=== PATIENT | female | born 1990 | race American Indian/Alaskan Native ===

== ENCOUNTER 2019-05-22 15:15 | Emergency (ER) | payer SELFPAY ==
--- NOTE | 2019-05-22 15:47 | Emergency Department Report ---
Blank Doc - Documentation Documentation: 29-year-old female that presents with pelvic pain and vaginal discharge. This initial assessment/diagnostic orders/clinical plan/treatment(s) is/are subject to change based on patient's health status, clinical progression and re- assessment by fellow clinical providers in the ED. Further treatment and workup at subsequent clinical providers discretion. Patient/guardians urged not to elope from the ED as their condition may be serious if not clinically assessed and managed. Initial orders include: 1- Patient sent to [facility] for further evaluation and treatment 2- UA 3- pelvic exam
[2019-05-22 16:53] LABS: HCG Qualitative,Urine Negative (Negative)
[2019-05-22 17:13] LABS: Bacteria,Urine 4+ /HPF (Negative)
[2019-05-22 17:14] LABS: Bilirubin,Urine NEG (Negative); Blood,Urine SM (Negative); Color,Urine Amber (Yellow); Mucus,Urine 3+ /HPF
--- NOTE | 2019-05-22 20:26 | Emergency Department Report ---
ED Female HPI - General Chief complaint: Urogenital-Female Stated complaint: VAGINAL DISCOMFORT Time Seen by Provider: 05/22/19 15:47 Source: patient Mode of arrival: Ambulatory Limitations: No Limitations - History of Present Illness Initial comments: 29 y/o female presents to the ED c/o of a 1 day history of a pain full vaginal mass without associated vaginal bleeding or abdominal pain. NO flank pain. Pain is dull and throbbing. No fever, chills or sweats. no nasuea or vomiting. -: Sudden Radiation: non-radiating Severity: mild Consistency: constant Improves with: none Worsens with: none Are you Now?: No Associated Symptoms: denies: vaginal discharge, vaginal bleeding, nausea/vomiting, loss of appetite, dysuria, shortness of breath, syncope, weakness - Related Data Previous Rx's Medication Instructions Recorded Last Taken Type Acetaminophen/Codeine [Tylenol #3] 1 tab PO Q6H PRN #15 tab 15 Unknown Rx Cyclobenzaprine [Flexeril 10 MG 10 mg PO TID PRN #12 tablet 15 Unknown Rx TAB] Ibuprofen [Motrin] 600 mg PO Q6H PRN #20 tablet 10/03/15 Unknown Rx Allergies Allergy/AdvReac Type Severity Reaction Status Date / Time No Known Allergies Allergy Unverified 12/19/14 10:56 ED Review of Systems ROS: Stated complaint: VAGINAL DISCOMFORT Other details as noted in HPI Comment: All other systems reviewed and negative ED Past Medical Hx - Past Medical History Hx Hypertension: Yes (during ) - Surgical History Additional Surgical History: hernia repair - Social History Smoking Status: Never Smoker Substance Use Type: None - Medications Home Medications: Home Medications Medication Instructions Recorded Confirmed Last Taken Type Acetaminophen/Codeine [Tylenol #3] 1 tab PO Q6H PRN #15 tab 04/25/15 Unknown Rx Cyclobenzaprine [Flexeril 10 MG 10 mg PO TID PRN #12 tablet 15 Unknown Rx TAB] Ibuprofen [Motrin] 600 mg PO Q6H PRN #20 tablet 10/03/15 Unknown Rx ED Physical Exam - General Limitations: No Limitations General appearance: alert, in no apparent distress - Head Head exam: Present: atraumatic, normocephalic - Eye Eye exam: Present: normal appearance, PERRL, EOMI Pupils: Present: normal accommodation - ENT ENT exam: Present: normal exam, normal orophraynx, mucous membranes moist - Neck Neck exam: Present: normal inspection, full ROM. Absent: tenderness, lymphadenopathy - Respiratory Respiratory exam: Present: normal lung sounds bilaterally. Absent: respiratory distress, wheezes, rales, chest wall tenderness, accessory muscle use, decreased breath sounds - Cardiovascular Cardiovascular Exam: Present: regular rate, normal rhythm. Absent: systolic murmur, diastolic murmur, rubs, gallop - GI/Abdominal GI/Abdominal exam: Present: soft, normal bowel sounds - Extremities Exam Extremities exam: Present: normal inspection - Back Exam Back exam: Present: normal inspection - Neurological Exam Neurological exam: Present: alert, oriented X3, CN II-XII intact - Psychiatric Psychiatric exam: Present: normal affect, normal mood. Absent: flat affect - Skin Skin exam: Present: warm, dry, intact, normal color. Absent: rash ED Course Vital Signs 05/22/19 15:24 Temperature 98.5 F Pulse Rate 75 Respiratory 18 Rate Blood Pressure 125/68 O2 Sat by Pulse 100 Oximetry ED Medical Decision Making - Medical Decision Making 29 y/o female with cystic vaginal mass appearing to be a vaginal polyp vs cyst. We discussed the need for biopsy with [facility] and followup. Dr. Magda potter also had face to face wtih Ms. Stahl. No futher intervention at this time. Critical care attestation.: If time is entered above; I have spent that time in minutes in the direct care of this critically ill patient, excluding procedure time. ED Disposition Clinical Impression: Vaginal wall cyst Disposition: [id number] PSY HOSP/PSY UNIT Is pt being admited?: No Does the pt Need Aspirin: No Condition: Stable Referrals: PRIMARY CARE, [Primary Care Provider] - 3-5 Days [facility] [Provider Group] - 3-5 Days
[2019-05-22 21:33] VITALS: BP 116/78
== END 2019-05-22 21:35 ==
LOC: ED 15:15
DX: N90.7 Vulvar cyst (principal); I10 Essential (primary) hypertension; Z79.899 Other long term (current) drug therapy
CPT/HCPCS: 81001; 81025

== ENCOUNTER 2021-05-19 13:49 | Emergency (ER) | payer SELFPAY ==
[2021-05-19 14:16] VITALS: BP 115/67
--- NOTE | 2021-05-19 15:47 | Emergency Department Report ---
ED General Adult HPI - General Chief complaint: Wound/Laceration Stated complaint: CUT ON EYE Time Seen by Provider: 05/19/21 15:14 Source: patient Mode of arrival: Ambulatory Limitations: No Limitations - History of Present Illness Initial comments: 30-year-old -[place] female patient presents with complaints of laceration to left face just below the brow. Patient states she was out last night and was drinking very heavily and fell. She states she did not notice the cut on her face until this morning. Last tetanus vaccination was 2015. She denies any known loss of consciousness, headache, dizziness, vision changes, nausea/vomiting, confusion, memory loss, or numbness/tingling/weakness in her limbs. No difficulty with speech or ambulation per patient. Drug allergies include penicillin. - Related Data Previous Rx's Medication Instructions Recorded Last Taken Type Acetaminophen/Codeine [Tylenol #3] 1 tab PO Q6H PRN #15 tab 04/25/15 Unknown Rx Cyclobenzaprine [Flexeril 10 MG 10 mg PO TID PRN #12 tablet 04/25/15 Unknown Rx TAB] Ibuprofen [Motrin] 600 mg PO Q6H PRN #20 tablet 10/03/15 Unknown Rx Sulfamethoxazole/Trimethoprim 1 each PO BID 5 Days #10 tab 05/19/21 Unknown Rx [Bactrim DS TAB] Allergies Allergy/AdvReac Type Severity Reaction Status Date / Time No Known Allergies Allergy Unverified 12/19/14 10:56 ED Review of Systems ROS: Stated complaint: CUT ON EYE Other details as noted in HPI Eyes: denies: vision change Respiratory: denies: shortness of breath Cardiovascular: denies: chest pain Skin: as per HPI Neurological: denies: headache, numbness, paresthesias ED Past Medical Hx - Past Medical History Hx Hypertension: Yes (during ) - Surgical History Additional Surgical History: hernia repair - Social History Smoking Status: Never Smoker Substance Use Type: None - Medications Home Medications: Home Medications Medication Instructions Recorded Confirmed Last Taken Type Acetaminophen/Codeine [Tylenol #3] 1 tab PO Q6H PRN #15 tab 04/25/15 Unknown Rx Cyclobenzaprine [Flexeril 10 MG 10 mg PO TID PRN #12 tablet 04/25/15 Unknown Rx TAB] Ibuprofen [Motrin] 600 mg PO Q6H PRN #20 tablet 10/03/15 Unknown Rx Sulfamethoxazole/Trimethoprim 1 each PO BID 5 Days #10 tab 05/19/21 Unknown Rx [Bactrim DS TAB] ED Physical Exam - General Limitations: No Limitations General appearance: alert, in no apparent distress - Head Head exam: Present: normocephalic - Expanded Head Exam Expanded Head exam: Present: laceration. Absent: abrasion, contusion, hematoma, racoon eyes, doherty's sign 1 - Approximately 1.5 to 2 cm laceration noted with epithelialization noted. - Eye Eye exam: Present: normal appearance, PERRL, EOMI. Absent: scleral icterus - Neck Neck exam: Present: normal inspection, full ROM. Absent: tenderness - Respiratory Respiratory exam: Absent: respiratory distress - Cardiovascular Cardiovascular Exam: Present: regular rate - Neurological Exam Neurological exam: Present: alert, oriented X3, CN II-XII intact, normal gait - Psychiatric Psychiatric exam: Present: normal affect, normal mood - Skin Skin exam: Present: warm, dry, normal color. Absent: rash ED Course Vital Signs 05/19/21 14:15 Temperature 98 F Pulse Rate 67 Respiratory 16 Rate Blood Pressure 115/67 [Right] O2 Sat by Pulse 98 Oximetry - Procedure Description Procedures done: 2 cm above left thigh wound cleaned with Betadine. Steri- Strips applied along with Dermabond. Patient tolerated procedure well without any immediate complications. No bleeding occurred ED Medical Decision Making - Medical Decision Making 30-year-old -[place] female patient presents with complaints of laceration to left face just below the brow. Patient states she was out last night and was drinking very heavily and fell. She states she did not notice the cut on her face until this morning. Last tetanus vaccination was 2015. She denies any known loss of consciousness, headache, dizziness, vision changes, nausea/vomiting, confusion, memory loss, or numbness/tingling/weakness in her limbs. No difficulty with speech or ambulation per patient. Drug allergies include penicillin. Wound cleaned with Betadine and Steri-Strips and Dermabond applied. Will discharge home with a few days of Bactrim for infection prophylaxis. Recommend follow-up with PCP in 3 to 5 days. Discussed wound care and signs and symptoms that should prompt immediate return to the ED with patient who verbalizes understanding Critical care attestation.: If time is entered above; I have spent that time in minutes in the direct care of this critically ill patient, excluding procedure time. ED Disposition Clinical Impression: Laceration of face Disposition: HOME / SELF CARE / HOMELESS Is pt being admited?: No Condition: Stable Instructions: Sutures, [place], or Adhesive Wound Closure, [id number] Prescriptions: Sulfamethoxazole/Trimethoprim [Bactrim DS TAB] 1 each PO BID 5 Days #10 tab Referrals: PRIMARY CARE, [Primary Care Provider] - 3-5 Days [facility] [Provider Group] - 3-5 Days Forms: Work/School Release Form(ED)
== END 2021-05-19 15:58 | disposition home or self-care (01) ==
LOC: ED 13:49
DX: S01.81XA Laceration without foreign body of other part of head, initial encounter (principal); W19.XXXA Unspecified fall, initial encounter; Y93.89 Activity, other specified; Y92.89 Other specified places as the place of occurrence of the external cause; Y99.8 Other external cause status
CPT/HCPCS: 99282